=== PATIENT | male | born 1950 | race African-American/Black ===

== ENCOUNTER 2018-12-17 17:05 | Inpatient (IN) | payer OTHER ==
[2018-12-17 19:34] LABS: Hematocrit 35 % (42-52); Mean Corpuscular HGB Conc 34 g/dL (31-36); Mean Corpuscular Hemoglobin 32 pg (27-31); Mean Corpuscular Volume 94 fL (80-94); Mean Platelet Volume 8.8 fL (7.4-10.4); Platelet Count 101 10^3/uL (150-450); Red Blood Count 3.74 10^6 /uL (4.18-5.48); Red Cell Distribution Width 14 % (10-15); White Blood Count 12.2 10^3/uL (3.5-10.8)
[2018-12-17 19:38] LABS: Urine Appearance Turbid; Urine Bacteria Absent (Absent); Urine Bilirubin Negative (Negative); Urine Blood 3+ (Negative); Urine Color Amber; Urine Glucose 1+(50 mg/dL) (Negative); Urine Ketones Negative (Negative); Urine Nitrite Negative (Negative); Urine Protein 2+(100 mg/dL) (Negative); Urine Red Blood Cell 3+(>10/hpf) (Absent); Urine Specific Gravity 1.018 (1.010-1.030); Urine Squamous Epithelial Cell Present (Absent); Urine Urobilinogen Negative (Negative); Urine White Blood Cell 3+(>20/hpf) (Absent)
[2018-12-17 19:50] LABS: Albumin 3.4 g/dL (3.2-5.2); Albumin/Globulin Ratio 1.1 (1-3); BUN/Creatinine Ratio 12.5 (8-20); Calcium 8.9 mg/dL (8.6-10.3); EGFR African American 28.3 (>60); EGFR Non-African American 23.4 (>60); Potassium 4.3 mmol/L (3.5-5.0); Total Protein 6.4 g/dL (6.4-8.9)
[2018-12-17 20:10] LABS: ABS Eosinophils 0.9 10^3/ul (0-0.6); ABS Lymphocytes 0.2 10^3/ul (1.0-4.8); ABS Monocytes 0.5 10^3/ul (0-0.8); ABS Neutrophils 10.6 10^3/ul (1.5-7.7); Eosinophil % 7.6 %; Lymphocyte % 1.8 %; Nucleated Red Blood Cells % 0.1
[2018-12-17] MEDS ORDERED: NS 0.9% 1000 ML** 2,000 ML IV ONE (20:13)
[2018-12-17] MEDS ORDERED: Piperacillin/Tazobac ADVAN(*) 3.375 GM in NS 0.9% 100 ML* 100 ML IVPB ONE (20:14)
[2018-12-17] MEDS ORDERED: Vancomycin(*) 1,000 MG in NS 0.9% 250 ML* 250 ML IVPB ONE (20:14)
--- NOTE | 2018-12-17 20:14 | ED ---
Complex/Multi-Sys Presentation - HPI Summary HPI Summary: 68 year old M presenting to [facility] accompanied by with a chief complaint of back pain since 2 days ago. The patient rates the pain 8/10 in severity. Symptoms aggravated by nothing. Symptoms alleviated by nothing.. Patient reports fever that started 3 days ago. Patient reports dysuria. Patient denies nausea, vomiting. 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 Patient took 500 mg x2 Tylenol 3 hours ago. Patinet has hx renal disease but no hx kidney stones or prostrate issues. states that their son was recently ill. - History Of Current Complaint Chief Complaint: EDFever Time Seen by Provider: 12/17/18 20:05 Hx Obtained From: Patient, Family/Delivery Engineer - Onset/Duration: Lasting Days - 2, Still Present Timing: Constant Severity Currently: Severe - 8/10 Aggravating Factor(s): Nothing Alleviating Factor(s): Nothing Associated Signs And Symptoms: Positive: Dysuria, Fever. Negative: Nausea, Vomiting - Allergies/Home Medications Allergies/Adverse Reactions: Allergies Allergy/AdvReac Type Severity Reaction Status Date / Time spironolactone AdvReac See Comment Verified 12/17/18 17:13 PMH/Surg Hx/FS Hx/Imm Hx Previously Healthy: No Endocrine/Hematology History: Reports: Hx Diabetes - IDDM Cardiovascular History: Reports: Hx Hypertension, Other Cardiovascular Problems/ Disorders - BUNDLE BRANCH BLOCK PER PT- SEES DR FITZGERALD Denies: Hx Pacemaker/ICD Respiratory History: Denies: Hx Asthma GI History: Reports: Hx Gastroesophageal Reflux Disease History: Reports: Hx Renal Disease Denies: Hx Kidney Stones Sensory History: Reports: Hx Contacts or Glasses - GLASSES, Hx Hearing Aid Opthamlomology History: Reports: Hx Contacts or Glasses - GLASSES Psychiatric History: Denies: Hx Panic Disorder - Surgical History Surgery Procedure, Year, and Place: GB,HEART CATH,TESTICULAR CYSTOCELE REMOVED Hx Anesthesia Reactions: No Infectious Disease History: No Infectious Disease History: Denies: Traveled Outside the [place] in Last 30 Days - Family History Known Family History: Positive: Diabetes - mother - Social History Alcohol Use: Occasionally Hx Substance Use: No Substance Use Type: Reports: None Hx Tobacco Use: Yes Smoking Status (MU): Former Smoker Review of Systems Positive: Fever Negative: Vomiting, Nausea Positive: dysuria Positive: Other - back pain All Other Systems Reviewed And Are Negative: Yes Physical Exam - Summary Physical Exam Summary: VITAL SIGNS: Reviewed. GENERAL: Patient is a well-developed and nourished MALE who is lying comfortable in the stretcher. Patient is not in any acute respiratory distress. HEAD AND FACE: No signs of trauma. No ecchymosis, hematomas or skull depressions. No sinus tenderness. EYES: PERRLA, EOMI x 2, No injected conjunctiva, no nystagmus. EARS: Hearing grossly intact. Ear canals and tympanic membranes are within normal limits. MOUTH: Oropharynx within normal limits. NECK: Supple, trachea is midline, no adenopathy, no JVD, no carotid bruit, no c- spine tenderness, neck with full ROM CHEST: Symmetric, no tenderness at palpation LUNGS: Clear to auscultation bilaterally. No wheezing or crackles. CVS: Regular rate and rhythm, S1 and S2 present, no murmurs or gallops appreciated. ABDOMEN: Left CVA tenderness. No signs of distention. No rebound no guarding, and no masses palpated. Bowel sounds are normal. EXTREMITIES: FROM in all major joints, bilateral trace pedal edema, no cyanosis or clubbing. NEURO: Alert and oriented x 3. No acute neurological deficits. Speech is normal and follows commands. SKIN: Dry and warm Triage Information Reviewed: Yes Vital Signs On Initial Exam: Initial Vitals Temp Pulse Resp BP Pulse Ox 101 F 92 18 149/64 97 12/17/18 17:08 12/17/18 17:08 12/17/18 17:08 12/17/18 17:08 12/17/18 17:08 Vital Signs Reviewed: Yes Diagnostics - Vital Signs Vital Signs Temp Pulse Resp BP Pulse Ox 12/17/18 18:39 100 F 74 24 136/60 97 12/17/18 18:31 100.5 F 12/17/18 17:08 101 F 92 18 149/64 97 - Laboratory Lab Results: Lab Results 12/17/18 12/17/18 12/17/18 Range/Units 19:22 19:28 19:28 WBC 12.2 H (3.5-10.8) 10^3/uL RBC 3.74 L (4.18-5.48) 10^6 /uL Hgb 12.0 L (14.0-18.0) g/dL Hct 35 L (42-52) % MCV 94 (80-94) fL MCH 32 H (27-31) pg MCHC 34 (31-36) g/dL RDW 14 (10-15) % Plt Count 101 L (150-450) 10^3/uL MPV 8.8 (7.4-10.4) fL Neut % (Auto) Pending Lymph % (Auto) Pending Mason % (Auto) Pending Eos % (Auto) Pending Baso % (Auto) Pending Absolute Neuts (auto) Pending Absolute Lymphs (auto) Pending Absolute Monos (auto) Pending Absolute Eos (auto) Pending Absolute Basos (auto) Pending Absolute Nucleated RBC Pending Nucleated RBC % Pending Sodium 125 L (135-145) mmol/L Potassium 4.3 (3.5-5.0) mmol/L Chloride 93 L (101-111) mmol/L Carbon Dioxide 24 (22-32) mmol/L Anion Gap 8 (2-11) mmol/L BUN 34 H (6-24) mg/dL Creatinine 2.72 H (0.67-1.17) mg/dL Est GFR ( Amer) 28.3 (>60) Est GFR (Non-Af Amer) 23.4 (>60) BUN/Creatinine Ratio 12.5 (8-20) Glucose 333 H (70-100) mg/dL Lactic Acid (0.5-2.0) mmol/L Calcium 8.9 (8.6-10.3) mg/dL Total Bilirubin 1.00 (0.2-1.0) mg/dL AST 30 (13-39) U/L ALT 20 (7-52) U/L Alkaline Phosphatase 113 H (34-104) U/L Total Protein 6.4 (6.4-8.9) g/dL Albumin 3.4 (3.2-5.2) g/dL Globulin 3.0 (2-4) g/dL Albumin/Globulin Ratio 1.1 (1-3) Urine Color [place] Urine Appearance Turbid Urine pH 5.0 (5-9) Ur Specific [place] 1.018 (1.010-1.030) Urine Protein 2+(100 mg/dl) A (Negative) Urine Ketones Negative (Negative) Urine Blood 3+ A (Negative) Urine Nitrate Negative (Negative) Urine Bilirubin Negative (Negative) Urine Urobilinogen Negative (Negative) Ur Leukocyte Esterase 3+ A (Negative) Urine WBC (Auto) 3+(>20/hpf) A (Absent) Urine RBC (Auto) 3+(>10/hpf) A (Absent) Ur Squamous Epith Cells Present A (Absent) Urine Bacteria Absent (Absent) Urine Sperm Present A (Absent) Urine Glucose 1+(50 mg/dl) A (Negative) 12/17/18 Range/Units 19:28 WBC (3.5-10.8) 10^3/uL RBC (4.18-5.48) 10^6 /uL Hgb (14.0-18.0) g/dL Hct (42-52) % MCV (80-94) fL MCH (27-31) pg MCHC (31-36) g/dL RDW (10-15) % Plt Count (150-450) 10^3/uL MPV (7.4-10.4) fL Neut % (Auto) Lymph % (Auto) Mason % (Auto) Eos % (Auto) Baso % (Auto) Absolute Neuts (auto) Absolute Lymphs (auto) Absolute Monos (auto) Absolute Eos (auto) Absolute Basos (auto) Absolute Nucleated RBC Nucleated RBC % Sodium (135-145) mmol/L Potassium (3.5-5.0) mmol/L Chloride (101-111) mmol/L Carbon Dioxide (22-32) mmol/L Anion Gap (2-11) mmol/L BUN (6-24) mg/dL Creatinine (0.67-1.17) mg/dL Est GFR ( Amer) (>60) Est GFR (Non-Af Amer) (>60) BUN/Creatinine Ratio (8-20) Glucose (70-100) mg/dL Lactic Acid 1.7 (0.5-2.0) mmol/L Calcium (8.6-10.3) mg/dL Total Bilirubin (0.2-1.0) mg/dL AST (13-39) U/L ALT (7-52) U/L Alkaline Phosphatase (34-104) U/L Total Protein (6.4-8.9) g/dL Albumin (3.2-5.2) g/dL Globulin (2-4) g/dL Albumin/Globulin Ratio (1-3) Urine Color Urine Appearance Urine pH (5-9) Ur Specific [place] (1.010-1.030) Urine Protein (Negative) Urine Ketones (Negative) Urine Blood (Negative) Urine Nitrate (Negative) Urine Bilirubin (Negative) Urine Urobilinogen (Negative) Ur Leukocyte Esterase (Negative) Urine WBC (Auto) (Absent) Urine RBC (Auto) (Absent) Ur Squamous Epith Cells (Absent) Urine Bacteria (Absent) Urine Sperm (Absent) Urine Glucose (Negative) Result Diagrams: 12/17/18 19:28 12/17/18 19:28 Lab Statement: Any lab studies that have been ordered have been reviewed, and results considered in the medical decision making process. - CT Abd/Pel CT Interpretation Completed By: Radiologist Summary of CT Findings: 1. There is symmetric bilateral perinephric scarring or fat stranding but no visible calculi or hydronephrosis. 2. There is minimal urine volume in the urinary bladder with associated urinary bladder wall thickening but there is also adjacent fat stranding, cannot exclude diffuse cystitis. ED physician has reviewed this report. Re-Evaluation - Re-Evaluation First Eval Re-Evaluation Time: 23:46 Comment: Patient is agreeable to admission plan Complex Multi-Symp Course/Dx Course Of Treatment: 68 year old M presenting to [facility] accompanied by with a chief complaint of back pain, fever, dysuria since 2 days ago. 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 Patient took 500 mg x2 Tylenol 3 hours ago. Patinet has hx renal disease but no hx kidney stones or prostrate issues. Physical exam findings: left CVA tenderness, bilateral trace pedal edema. CT Abd/Pel reveals, per radiologist, 1. There is symmetric bilateral perinephric scarring or fat stranding but no visible calculi or hydronephrosis. 2. There is minimal urine volume in the urinary bladder with associated urinary bladder wall thickening but there is also adjacent fat stranding, cannot exclude diffuse cystitis. Test results with no significant abnormalities except for WBC 12.2, RBC 3.74, Hgb 12.-, Hct 35, Plt 101, absolute neuts 10.6, absolute lymphs 0.2, and absolute eos 0.9, sodium 125, chloride 93, BUN 34, creatinine 2.72, glucose 333, alkaline phosphatase 113, and c-reactive protein 204.12. Urinanalysis shows protein 2+, blood 3+, leukocyte esterase 3+, WBC 3+, RBC 3+, squamous epithelial cells, sperm, and glucose 1+. In the ED course, the patient was given insulin, IV fluids, vancomycin, piperacillin/tazobactam. Discussed patient care with Dr. Kelly, hospitalist, at 23:43 who agreed to admit patient. The patient will be admitted to the hospitalist. Patient is agreeable to discharge plan. - Diagnoses Provider Diagnoses: Pyelonephritis, UTI (urinary tract infection) - Physician Notifications Discussed Care Of Patient With: Yisel Kelly Time Discussed With Above Provider: 23:43 Instructed by Provider To: Other - Dr. Kelly, hospitalist, agrees to admit patient Discharge - Sign-Out/Discharge Documenting (check all that apply): Patient Departure - Admit Patient Received Moderate/Deep Sedation with Procedure: No - Discharge Plan Condition: Stable Disposition: ADMITTED TO [facility] Referrals: Erika Bolivar MD [Primary Care Provider] - - Attestation Statements Document Initiated by Scribe: Yes Documenting Scribe: Daylin Marcano Provider For Whom Bentonibe is Documenting (Include Credential): Ayaka Atkins MD Scribe Attestation: IDaylin, scribed for Ayaka Atkins MD on 12/17/18 at [id number]. Status of Scribe Document: Ready
[2018-12-17] MEDS ORDERED: Insulin REGULAR(*) 1 UNITS UNIT IV PUSH ONE (20:15)
[2018-12-17 20:55] LABS: Activated Partial Thrombo Time 30.3 seconds (26.0-38.0); INR 1.08 (0.82-1.09)
[2018-12-18] MEDS ORDERED: Acetaminophen TAB* 325 MG PO PRN (02:42)
[2018-12-18] MEDS ORDERED: Dextrose 50% Syringe 50 ML* 25 GM/50 ML SYRINGE IV PUSH PRN (02:42)
[2018-12-18] MEDS ORDERED: Ondansetron INJ* 2 MG/ML VIAL IV PRN (02:43)
[2018-12-18] MEDS ORDERED: Morphine INJ* 2 MG/ML 1 ML SYRINGE (TWO MG - NEW SYRINGE VERSION) IV PRN (02:56)
[2018-12-18] MEDS ORDERED: Morphine 4 MG/ML VIAL (1 ml) 4 MG/ML VIAL IV ONE (03:05)
[2018-12-18] MEDS: NS 0.9% 1000 ML** 1,000 ML IV SCH ×2 (03:23→08:59)
[2018-12-18] MEDS: Enoxaparin(*) 30 MG/0.3 ML SYR SUBCUT SCH (04:06)
[2018-12-18] MEDS: cefTRIAXone(*) 1 GM in NS 0.9% 50 ML* 50 ML IVPB SCH (04:09)
--- NOTE | 2018-12-18 07:31 | HP ---
HISTORY AND PHYSICAL: DATE OF ADMISSION: 12/18/18 CHIEF COMPLAINT: Back pain. PRIMARY CARE PROVIDER: Erika Bolivar MD. SALES AND MARKETING INTERN: Alana Doran, the patient's . CODE STATUS: Full. SOURCE OF INFORMATION: HPI is obtained from the patient and review of chart. He is an excellent historian. HISTORY OF PRESENT ILLNESS: This is a 68-year-old male with a past medical history of insulin-dependent diabetes, CAD, status post distant myocardial infarction without intervention per patient, hypertension, GERD, CKD, stage 2 to 3, chronic hep B status, and baseline left bundle-branch block, who is presenting with 2 to 3 days of back pain. The patient reports that his back pain started about 3 days ago, dull and achy and he was trying to take Tylenol and increase his fluids. He started to have nausea, vomiting, and fever the day of his admission and thus he decided to present. He has no history of kidney stones, no sick contacts, and no other associated symptoms. He had 2 to 3 episodes of vomiting prior to his admission to the hospital and felt feverish , though no measured temperature at home. In the emergency room, his temperature is 101, blood pressure is 149/64, heart rate 92, respiratory rate 18, satting 97% on room air. Labs are done, which showed hyponatremia to 125, creatinine of 2.72, glucose elevated at 333, white blood cell elevated at 12, hemoglobin of 12, and platelets of 101. CT abdomen and pelvis was done that showed bilateral perinephric stranding, concerning for pyelonephritis. A urinalysis was done, which was 2+ protein, 3+ blood, 3+ leuk esterase, squamous cells, and white blood cell count. CRP was elevated at 204 as well. Because of the patient's fever, meeting 2/4 SIRS criteria, hyponatremia, and elevated creatinine, the patient was asked to be admitted to the hospitalist team for further evaluation and treatment. PAST MEDICAL HISTORY: Insulin-dependent diabetes, hypertension, CAD with distant LA with no intervention per patient, GERD, CKD stage 2 to 3 with baseline creatinine of 1.29, chronic hep B status, left bundle-branch block. PAST SURGICAL HISTORY: Status post cholecystectomy, status post testicular cystocele surgery. MEDICATIONS: Prior to admission: 1. Aspirin 81 mg p.o. daily. 2. Edarbi 80 mg p.o. q.h.s. 3. Esomeprazole 40 mg p.o. q.h.s. 4. Furosemide 40 mg p.o. b.i.d. 5. Humalog 5 units subcutaneous a.c., h.s. 6. Lantus 20 units subcutaneous 8 p.m. 7. Multivitamin 1 tab p.o. daily. 8. Potassium 10 mEq p.o. b.i.d. 9. Simvastatin 20 mg p.o. q.h.s. 10. Vitamin B12 one tab p.o. q.a.m. 11. Amlodipine 10 mg p.o. q.h.s. ALLERGIES: To SPIRONOLACTONE. FAMILY HISTORY: His mother has diabetes. His father had heart disease. SOCIAL HISTORY: The patient is a professor at [employer]. He lives with his . He is a lifetime nontobacco user, social alcohol drinker with 2 to 3 drinks per week and a never illicit user. REVIEW OF SYSTEMS: Constitutional: Positive for 1 day of fever, chills, and malaise. HEENT: Negative for headaches, vision changes or sore throat. Cardiovascular: Negative for chest pain, palpitations, orthopnea. Respiratory : Negative for shortness of breath, cough, or pleuritic chest pain. GI: Negative for abdominal pain. Positive for nausea and vomiting. : Negative for dysuria or hematuria. Some hesitancy and difficulty voiding. Musculoskeletal: Positive for low back pain. Negative for weakness. Skin: Negative for new rashes or lesions. Neurologic: Negative for focal weakness or numbness. Psychiatric: Negative for depression. Endocrine: Negative for polyuria, polydipsia. Heme: Negative for easy bruising, bleeding, or lymphadenopathy. PHYSICAL EXAMINATION GENERAL: This is a very well-appearing, [place] man in mild distress, sitting up in bed, holding his back. VITAL SIGNS: At time of physical exam, temperature is 99.6, pulse rate 70, respiratory rate 18, blood pressure is 152/64. HEENT: Pupils are equal and reactive. Extraocular muscles are intact. Sclerae are anicteric. He has dry mucous membranes. NECK: Supple without cervical lymphadenopathy or supraclavicular lymphadenopathy. RESPIRATORY: Lungs are clear to auscultation bilaterally. CARDIAC: He has regular rate and rhythm with no murmurs, rubs, or gallops. ABDOMEN: Distended, but soft, nontender with normoactive bowel sounds. He does have costovertebral angle tenderness on even gentle palpation bilaterally. MUSCULOSKELETAL: He moves all 4 limbs without pain. EXTREMITIES: He has 1+ nonpitting edema to bilateral shins and 2+ pulses in bilateral lower extremities symmetrically. NEUROLOGIC: His cranial nerves II through XII are intact. He has no focal deficits. He is A and O x4. LABORATORY DATA AND DIAGNOSTIC STUDIES: White blood cell count is 12.2, hemoglobin 12, hematocrit 35, platelets 101. Sodium 125, chloride 93, BUN 34, creatinine 2.72, glucose 333, lactic acid 1.7, alkaline phosphatase 113, elevated CRP at 204. UA with 2+ protein, 3+ blood, 3+ leuk esterase, 3+ white blood cell count. Imaging: CT abdomen, pelvis that showed bilateral perinephric stranding on both kidneys. Minimal urine volume in the urinary bladder with associated urinary bladder thickening with adjacent fat stranding and cannot exclude diffuse cystitis. Imaging and labs were reviewed by myself. ASSESSMENT AND PLAN: This is a 68-year-old man with a past medical history of insulin-dependent diabetes, hypertension, gastroesophageal reflux disease, chronic kidney disease stage 2 to 3, chronic hepatitis B status, who is presenting with 3 days of back pain and 1 day of nausea, vomiting, and fever, found to have pyelonephritis bilaterally and diffuse cystitis meeting sepsis criteria with 2/4 systemic inflammatory response syndrome criteria and a suspected source likely from urinary. 1. Sepsis. The patient has 2/4 systemic inflammatory response syndrome criteria with likely urinary source, his lactate is flat. He has no evidence of end organ damage or shock. He was bolused in the emergency room with 2 L normal saline. I will continue him on maintenance IV at 125 for an additional 2 L. The patient has been pancultured with blood cultures, urine culture, and has received vancomycin and Zosyn in the emergency room. We will continue ceftriaxone for gram-negative coverage and follow culture data closely, low suspicion for Methicillin-resistant Staphylococcus aureus thus stable to discontinue vancomycin. 2. Pyelonephritis. As above we will continue with fluids, ceftriaxone, and urine culture. If persistent fevers, consider broadening or repeating ultrasound to determine any local complications of pyelonephritis. Furthermore, unclear HOW patient got bilateral pyelonephritis ? retention? consider bladder scan and urology 3. Acute kidney injury on chronic kidney disease most likely hypovolemic prerenal injury. We will continue to follow status post fluid resuscitation. The patient has no evidence of hydronephrosis, and no evidence of urinary retention on CT scan. 4. Insulin-dependent diabetes. We will continue Lantus 20 units q.h.s. and sliding Lispro with meals. Point of care glucose is monitored. 5. Gastroesophageal reflux disease. We will continue the patient's PPI. 6. Hypertension. We will continue amlodipine, but hold on Lasix and potassium supplementation for now. 7. Coronary artery disease. The patient is on aspirin, statin, and not on beta - osiris; will be continued on home aspirin and statin. 8. Hyponatremia, this is likely hypovolemic hyponatremia and we will monitor after fluid resuscitation. 9. DVT prophylaxis. We will place the patient on Lovenox, renally dosed. 10. Diet. Place the patient on carb consistent diet. 11. Code status is full. 12. Disposition. This patient is stable for admission the [address] [place] [address] for pyelonephritis, sepsis without shock with presumed urinary source. TIME SPENT: Forty five minutes was spent in the planning of this admission with over half of that spent directly at the bedside with the patient providing direct patient care. Plan of care was discussed with patient and has no further questions. [id number]/[facility] #: [id number] [place]
[2018-12-18] MEDS: Insulin LISPRO* 1 UNITS UNIT SUBCUT SCH ×4 (08:53→20:47)
[2018-12-18] MEDS: Pantoprazole TAB * 40 MG TAB PO SCH (08:53)
[2018-12-18] MEDS: Aspirin 81 mg CHEW TAB* 81 MG TAB.CHEW PO SCH (08:53)
[2018-12-18 08:56] LABS: BUN/Creatinine Ratio 13.2 (8-20); Calcium 7.5 mg/dL (8.6-10.3); EGFR African American 25.7 (>60); EGFR Non-African American 21.2 (>60); Potassium 4.9 mmol/L (3.5-5.0)
--- NOTE | 2018-12-18 14:53 | PN ---
Subjective Date of Service: 12/18/18 Interval History: VS: afebrile Labs: leukocytosis, anemia, thrombocytopenia- all likely reactive; hyponatremia - improving; elevated Cr, elevated CRP Pt states he is feeling much better today, stating urinary flow is improved and he has decreased pain with urination, although he continues to experience burning. He states back pain is intermittently, but currently he has none. He notes urine color change, and believes he is experiencing hematuria, but is unsure. He follows with Dr. Srinivasan as outpatient, and states that he has had UTI in past, but is not sure about h/o pyelo. Objective Active Medications: Acetaminophen (Tylenol Tab*) 650 mg PO Q6H PRN Amlodipine Besylate (Norvasc Tab*) 10 mg PO 1700 GAUDENCIO Aspirin (Aspirin 81 Mg Chew Tab*) 81 mg PO DAILY GAUDENCIO Atorvastatin Calcium (Lipitor*) 10 mg PO 1700 GAUDENCIO Dextrose (D50w Syringe 50 Ml*) 12.5 gm IV PUSH .FOR FS < 60 - SS PRN Enoxaparin Sodium (Lovenox(*)) 30 mg SUBCUT Q24H GAUDENCIO Sodium Chloride (Ns 0.9% 1000 Ml) 1,000 mls @ 125 mls/hr IV Q8H GAUDENCIO Ceftriaxone Sodium 1 gm/ (Sodium Chloride) 50 mls @ 200 mls/hr IVPB Q24H GAUDENCIO Insulin Glargine (Lantus(*)) 20 units SUBCUT Q24H GAUDENCIO Insulin Human Lispro (Humalog*) 0 units SUBCUT ACHS GAUDENCIO; Protocol Morphine Sulfate (Morphine Inj (Syringe))*) 4 mg IV Q6H PRN Ondansetron HCl (Zofran Inj*) 4 mg IV Q6H PRN Pantoprazole Sodium (Protonix Tab*) 40 mg PO DAILY GAUDENCIO Vital Signs: Temp Pulse Resp BP Pulse Ox 98.0 F 76 28 104/58 99 12/18/18 12:14 12/18/18 12:14 12/18/18 12:14 12/18/18 12:14 12/18/18 12:14 Oxygen Devices in Use Now: None Appearance: Pt is laying in bed with HOB elevated. He appears comfortable and in no acute distress. He is pleasant, cooperative. Eyes: No Scleral Icterus Ears/Nose/Mouth/Throat: NL Teeth, Lips, Gums, Clear Oropharnyx, Mucous Membranes Moist Neck: NL Appearance and Movements; NL JVP, Trachea Midline Respiratory: Symmetrical Chest Expansion and Respiratory Effort, Clear to Auscultation Cardiovascular: NL Sounds; No Murmurs; No JVD, RRR, No Edema Abdominal: No Hepatosplenomegaly - BS WNL; abd soft and distended without tenderness. + CVA tenderness on L. Extremities: No Edema, No Clubbing, Cyanosis Neurological: Alert and Oriented x 3 Result Diagrams: 12/17/18 19:28 12/18/18 08:21 Additional Lab and Data: Lab Results 12/17/18 12/17/18 12/17/18 Range/Units 19:22 19:28 19:28 WBC 12.2 H (3.5-10.8) 10^3/uL RBC 3.74 L (4.18-5.48) 10^6 /uL Hgb 12.0 L (14.0-18.0) g/dL Hct 35 L (42-52) % MCV 94 (80-94) fL MCH 32 H (27-31) pg MCHC 34 (31-36) g/dL RDW 14 (10-15) % Plt Count 101 L (150-450) 10^3/uL MPV 8.8 (7.4-10.4) fL Neut % (Auto) Pending Lymph % (Auto) Pending [place] % (Auto) Pending Eos % (Auto) Pending Baso % (Auto) Pending Absolute Neuts (auto) Pending Absolute Lymphs (auto) Pending Absolute Monos (auto) Pending Absolute Eos (auto) Pending Absolute Basos (auto) Pending Absolute Nucleated RBC Pending Nucleated RBC % Pending Sodium 125 L (135-145) mmol/L Potassium 4.3 (3.5-5.0) mmol/L Chloride 93 L (101-111) mmol/L Carbon Dioxide 24 (22-32) mmol/L Anion Gap 8 (2-11) mmol/L BUN 34 H (6-24) mg/dL Creatinine 2.72 H (0.67-1.17) mg/dL Est GFR ( Amer) 28.3 (>60) Est GFR (Non-Af Amer) 23.4 (>60) BUN/Creatinine Ratio 12.5 (8-20) Glucose 333 H (70-100) mg/dL Lactic Acid (0.5-2.0) mmol/L Calcium 8.9 (8.6-10.3) mg/dL Total Bilirubin 1.00 (0.2-1.0) mg/dL AST 30 (13-39) U/L ALT 20 (7-52) U/L Alkaline Phosphatase 113 H (34-104) U/L Total Protein 6.4 (6.4-8.9) g/dL Albumin 3.4 (3.2-5.2) g/dL Globulin 3.0 (2-4) g/dL Albumin/Globulin Ratio 1.1 (1-3) Urine Color [place] Urine Appearance Turbid Urine pH 5.0 (5-9) Ur Specific [place] 1.018 (1.010-1.030) Urine Protein 2+(100 mg/dl) A (Negative) Urine Ketones Negative (Negative) Urine Blood 3+ A (Negative) Urine Nitrate Negative (Negative) Urine Bilirubin Negative (Negative) Urine Urobilinogen Negative (Negative) Ur Leukocyte Esterase 3+ A (Negative) Urine WBC (Auto) 3+(>20/hpf) A (Absent) Urine RBC (Auto) 3+(>10/hpf) A (Absent) Ur Squamous Epith Cells Present A (Absent) Urine Bacteria Absent (Absent) Urine Sperm Present A (Absent) Urine Glucose 1+(50 mg/dl) A (Negative) 12/17/18 Range/Units 19:28 WBC (3.5-10.8) 10^3/uL RBC (4.18-5.48) 10^6 /uL Hgb (14.0-18.0) g/dL Hct (42-52) % MCV (80-94) fL MCH (27-31) pg MCHC (31-36) g/dL RDW (10-15) % Plt Count (150-450) 10^3/uL MPV (7.4-10.4) fL Neut % (Auto) Lymph % (Auto) [place] % (Auto) Eos % (Auto) Baso % (Auto) Absolute Neuts (auto) Absolute Lymphs (auto) Absolute Monos (auto) Absolute Eos (auto) Absolute Basos (auto) Absolute Nucleated RBC Nucleated RBC % Sodium (135-145) mmol/L Potassium (3.5-5.0) mmol/L Chloride (101-111) mmol/L Carbon Dioxide (22-32) mmol/L Anion Gap (2-11) mmol/L BUN (6-24) mg/dL Creatinine (0.67-1.17) mg/dL Est GFR ( Amer) (>60) Est GFR (Non-Af Amer) (>60) BUN/Creatinine Ratio (8-20) Glucose (70-100) mg/dL Lactic Acid 1.7 (0.5-2.0) mmol/L Calcium (8.6-10.3) mg/dL Total Bilirubin (0.2-1.0) mg/dL AST (13-39) U/L ALT (7-52) U/L Alkaline Phosphatase (34-104) U/L Total Protein (6.4-8.9) g/dL Albumin (3.2-5.2) g/dL Globulin (2-4) g/dL Albumin/Globulin Ratio (1-3) Urine Color Urine Appearance Urine pH (5-9) Ur Specific [place] (1.010-1.030) Urine Protein (Negative) Urine Ketones (Negative) Urine Blood (Negative) Urine Nitrate (Negative) Urine Bilirubin (Negative) Urine Urobilinogen (Negative) Ur Leukocyte Esterase (Negative) Urine WBC (Auto) (Absent) Urine RBC (Auto) (Absent) Ur Squamous Epith Cells (Absent) Urine Bacteria (Absent) Urine Sperm (Absent) Urine Glucose (Negative) Assess/Plan/Problems-Billing Assessment: 68 yom PMHx DM insulin-dependent, HTN, CAD, CKD, GERD, chronic HBV, LBBB presents with sepsis likely due to pyelonephritis. - Patient Problems (1) Pyelonephritis, acute Comment: -B/l pyelo without hydro; pain improved, afebrile with leukocytosis, elevated CRP -BC GP cocci resembling staph x1- ? skin contaminant; will start vanco and await further identification. Will consider ID consult. -Continue ceftriaxone -Bladder scan ordered for possible urinary retention- WNL to date (2) Hyponatremia Comment: -Slight improvement with hydration -Continue IVF and monitoring (3) Sepsis Comment: -Sepsis likely secondary to pyelo -BC pending -Resolved (4) Diabetes mellitus Comment: -Continue lantus, humalog (5) Hypertension Comment: -Controlled -Continue amlodipine (6) CKD (chronic kidney disease) Comment: -Cr elevated above baseline, trending slightly up; ? SHAINA d/t prerenal hypovolemia -Will continue IVF -Bladder scan to check for urinary retention -Continue to monitor (7) CAD (coronary artery disease) Comment: -ASA, lipitor (8) GERD (gastroesophageal reflux disease) Comment: -Continue protonix (9) DVT prophylaxis Comment: -Continue lovenox renal dose (10) Full code status Status and Disposition: Inpatient. Discharge when stable.
[2018-12-18] MEDS: amLODIPine TAB* 5 MG PO SCH (16:39)
[2018-12-18] MEDS: Atorvastatin* 10 MG TAB PO SCH (16:40)
[2018-12-18] MEDS ORDERED: Senna TAB PO PRN (17:39)
[2018-12-18] MEDS ORDERED: Magnesium Hydroxide LIQ* 30 ML UDC PO PRN (17:39)
[2018-12-18] MEDS ORDERED: Polyethylene Glycol 3350* 17 GM PACKET PO PRN (17:39)
[2018-12-18] MEDS ORDERED: Vancomycin(*) 1,250 MG in NS 0.9% 250 ML* 250 ML IVPB ONE (18:00)
[2018-12-18] MEDS: Docusate CAP* 100 MG PO SCH (20:44)
[2018-12-18] MEDS: Magnesium Hydroxide LIQ* 30 ML UDC PO SCH (20:44)
[2018-12-18] MEDS: Insulin GLARGINE(*) 1 UNITS UNIT SUBCUT SCH (20:46)
[2018-12-19] MEDS: cefTRIAXone(*) 1 GM in NS 0.9% 50 ML* 50 ML IVPB SCH (04:18)
[2018-12-19] MEDS: Enoxaparin(*) 30 MG/0.3 ML SYR SUBCUT SCH (04:21)
[2018-12-19 07:07] LABS: Hematocrit 33 % (42-52); Hemoglobin 11.3 g/dL (14.0-18.0); Mean Corpuscular HGB Conc 34 g/dL (31-36); Mean Corpuscular Hemoglobin 32 pg (27-31); Mean Corpuscular Volume 94 fL (80-94); Red Blood Count 3.52 10^6 /uL (4.18-5.48); Red Cell Distribution Width 14 % (10-15); White Blood Count 13.7 10^3/uL (3.5-10.8)
[2018-12-19 07:17] LABS: Calcium 8.2 mg/dL (8.6-10.3); EGFR Non-African American 23.1 (>60); Potassium 4.3 mmol/L (3.5-5.0)
[2018-12-19] MEDS: Insulin LISPRO* 1 UNITS UNIT SUBCUT SCH ×4 (08:08→20:59)
[2018-12-19] MEDS: Aspirin 81 mg CHEW TAB* 81 MG TAB.CHEW PO SCH (08:09)
[2018-12-19] MEDS: Pantoprazole TAB * 40 MG TAB PO SCH (08:09)
[2018-12-19] MEDS: Magnesium Hydroxide LIQ* 30 ML UDC PO SCH ×4 (08:09→20:52)
[2018-12-19] MEDS: Docusate CAP* 100 MG PO SCH ×2 (08:09→21:01)
[2018-12-19 08:46] LABS: ABS Eosinophils 0.3 10^3/ul (0-0.6); ABS Lymphocytes 0.2 10^3/ul (1.0-4.8); ABS Monocytes 0.5 10^3/ul (0-0.8); ABS Neutrophils 12.7 10^3/ul (1.5-7.7); Eosinophil % 2.5 %; Lymphocyte % 1.4 %; Mean Platelet Volume 10.1 fL (7.4-10.4); Nucleated Red Blood Cells % 0.1; Platelet Count 82 10^3/uL (150-450)
--- NOTE | 2018-12-19 10:03 | PN ---
Subjective Date of Service: 12/19/18 Interval History: VS: WNL Labs: increased leukocytosis, thrombocytopenia- ? reactive; decreased H/H; hyponatremia and Cr improving Pt states that he is feeling better. States he continues to have small amount of pain on L side, but that it is improved from admission. He is urinating well without hematuria/color changes or burning on urination. He has b/l LE edema, which he states occurs when LE are on ground. Objective Active Medications: Acetaminophen (Tylenol Tab*) 650 mg PO Q6H PRN Amlodipine Besylate (Norvasc Tab*) 10 mg PO 1700 GAUDENCIO Aspirin (Aspirin 81 Mg Chew Tab*) 81 mg PO DAILY GAUDENCIO Atorvastatin Calcium (Lipitor*) 10 mg PO 1700 GAUDENCIO Dextrose (D50w Syringe 50 Ml*) 12.5 gm IV PUSH .FOR FS < 60 - SS PRN Docusate Sodium (Colace Cap*) 100 mg PO BID GAUDENCIO Enoxaparin Sodium (Lovenox(*)) 30 mg SUBCUT Q24H GAUDENCIO Ceftriaxone Sodium 1 gm/ (Sodium Chloride) 50 mls @ 200 mls/hr IVPB Q24H GAUDENCIO Insulin Glargine (Lantus(*)) 20 units SUBCUT Q24H GAUDENCIO Insulin Human Lispro (Humalog*) 0 units SUBCUT ACHS GAUDENCIO; Protocol Magnesium Hydroxide (Milk Of Magnesia Liq*) 30 ml PO BID GAUDENCIO Magnesium Hydroxide (Milk Of Magnesia Liq*) 30 ml PO BID PRN Morphine Sulfate (Morphine Inj (Syringe))*) 4 mg IV Q6H PRN Ondansetron HCl (Zofran Inj*) 4 mg IV Q6H PRN Pantoprazole Sodium (Protonix Tab*) 40 mg PO DAILY GAUDENCIO Polyethylene Glycol/Electrolytes (Miralax*) 17 gm PO DAILY PRN Senna (Senokot Tab*) 1 tab PO BEDTIME PRN Vital Signs: Temp Pulse Resp BP Pulse Ox 99.1 F 90 18 139/56 99 12/19/18 06:01 12/19/18 06:01 12/19/18 08:24 12/19/18 06:01 12/19/18 06:01 Oxygen Devices in Use Now: None Appearance: Pt is sitting at edge of bed with LE on ground. He is eating breakfast. He appears well and in no acute distress. Eyes: No Scleral Icterus, PERRLA Ears/Nose/Mouth/Throat: NL Teeth, Lips, Gums, Clear Oropharnyx, Mucous Membranes Moist Neck: NL Appearance and Movements; NL JVP, Trachea Midline Respiratory: Symmetrical Chest Expansion and Respiratory Effort, Clear to Auscultation Cardiovascular: NL Sounds; No Murmurs; No JVD, RRR Abdominal: NL Sounds; No Tenderness; No Distention, No Hepatosplenomegaly, - - + L CVA tenderness Extremities: No Clubbing, Cyanosis, - - 1+ dependent pitting edema to b/l LE Neurological: Alert and Oriented x 3 Result Diagrams: 12/19/18 06:37 12/19/18 06:37 Additional Lab and Data: Lab Results 12/17/18 12/17/18 12/17/18 Range/Units 19:22 19:28 19:28 WBC 12.2 H (3.5-10.8) 10^3/uL RBC 3.74 L (4.18-5.48) 10^6 /uL Hgb 12.0 L (14.0-18.0) g/dL Hct 35 L (42-52) % MCV 94 (80-94) fL MCH 32 H (27-31) pg MCHC 34 (31-36) g/dL RDW 14 (10-15) % Plt Count 101 L (150-450) 10^3/uL MPV 8.8 (7.4-10.4) fL Neut % (Auto) Pending Lymph % (Auto) Pending [place] % (Auto) Pending Eos % (Auto) Pending Baso % (Auto) Pending Absolute Neuts (auto) Pending Absolute Lymphs (auto) Pending Absolute Monos (auto) Pending Absolute Eos (auto) Pending Absolute Basos (auto) Pending Absolute Nucleated RBC Pending Nucleated RBC % Pending Sodium 125 L (135-145) mmol/L Potassium 4.3 (3.5-5.0) mmol/L Chloride 93 L (101-111) mmol/L Carbon Dioxide 24 (22-32) mmol/L Anion Gap 8 (2-11) mmol/L BUN 34 H (6-24) mg/dL Creatinine 2.72 H (0.67-1.17) mg/dL Est GFR ( Amer) 28.3 (>60) Est GFR (Non-Af Amer) 23.4 (>60) BUN/Creatinine Ratio 12.5 (8-20) Glucose 333 H (70-100) mg/dL Lactic Acid (0.5-2.0) mmol/L Calcium 8.9 (8.6-10.3) mg/dL Total Bilirubin 1.00 (0.2-1.0) mg/dL AST 30 (13-39) U/L ALT 20 (7-52) U/L Alkaline Phosphatase 113 H (34-104) U/L Total Protein 6.4 (6.4-8.9) g/dL Albumin 3.4 (3.2-5.2) g/dL Globulin 3.0 (2-4) g/dL Albumin/Globulin Ratio 1.1 (1-3) Urine Color [place] Urine Appearance Turbid Urine pH 5.0 (5-9) Ur Specific [place] 1.018 (1.010-1.030) Urine Protein 2+(100 mg/dl) A (Negative) Urine Ketones Negative (Negative) Urine Blood 3+ A (Negative) Urine Nitrate Negative (Negative) Urine Bilirubin Negative (Negative) Urine Urobilinogen Negative (Negative) Ur Leukocyte Esterase 3+ A (Negative) Urine WBC (Auto) 3+(>20/hpf) A (Absent) Urine RBC (Auto) 3+(>10/hpf) A (Absent) Ur Squamous Epith Cells Present A (Absent) Urine Bacteria Absent (Absent) Urine Sperm Present A (Absent) Urine Glucose 1+(50 mg/dl) A (Negative) 12/17/18 Range/Units 19:28 WBC (3.5-10.8) 10^3/uL RBC (4.18-5.48) 10^6 /uL Hgb (14.0-18.0) g/dL Hct (42-52) % MCV (80-94) fL MCH (27-31) pg MCHC (31-36) g/dL RDW (10-15) % Plt Count (150-450) 10^3/uL MPV (7.4-10.4) fL Neut % (Auto) Lymph % (Auto) [place] % (Auto) Eos % (Auto) Baso % (Auto) Absolute Neuts (auto) Absolute Lymphs (auto) Absolute Monos (auto) Absolute Eos (auto) Absolute Basos (auto) Absolute Nucleated RBC Nucleated RBC % Sodium (135-145) mmol/L Potassium (3.5-5.0) mmol/L Chloride (101-111) mmol/L Carbon Dioxide (22-32) mmol/L Anion Gap (2-11) mmol/L BUN (6-24) mg/dL Creatinine (0.67-1.17) mg/dL Est GFR ( Amer) (>60) Est GFR (Non-Af Amer) (>60) BUN/Creatinine Ratio (8-20) Glucose (70-100) mg/dL Lactic Acid 1.7 (0.5-2.0) mmol/L Calcium (8.6-10.3) mg/dL Total Bilirubin (0.2-1.0) mg/dL AST (13-39) U/L ALT (7-52) U/L Alkaline Phosphatase (34-104) U/L Total Protein (6.4-8.9) g/dL Albumin (3.2-5.2) g/dL Globulin (2-4) g/dL Albumin/Globulin Ratio (1-3) Urine Color Urine Appearance Urine pH (5-9) Ur Specific [place] (1.010-1.030) Urine Protein (Negative) Urine Ketones (Negative) Urine Blood (Negative) Urine Nitrate (Negative) Urine Bilirubin (Negative) Urine Urobilinogen (Negative) Ur Leukocyte Esterase (Negative) Urine WBC (Auto) (Absent) Urine RBC (Auto) (Absent) Ur Squamous Epith Cells (Absent) Urine Bacteria (Absent) Urine Sperm (Absent) Urine Glucose (Negative) Microbiology and Other Data: Microbiology 12/17/18 20:35 Aerobic Blood Culture - Preliminary Blood Venous No Growth Day 1 Anaerobic Blood Culture - Final Staphylococcus [place] Blood MRSA/MSSA (PCR) - Final Mrsa Negative S.aureus Negative 12/17/18 20:37 Aerobic Blood Culture - Preliminary Blood Venous No Growth Day 1 Anaerobic Blood Culture - Preliminary No Growth Day 1 Assess/Plan/Problems-Billing Assessment: 68 yom PMHx DM insulin-dependent, HTN, CAD, CKD, GERD, chronic HBV, LBBB presents with sepsis likely due to pyelonephritis. - Patient Problems (1) Pyelonephritis, acute Comment: -B/l pyelo without hydro; pain improved, afebrile with leukocytosis, elevated CRP -BC GP cocci resembling staph x1- probable skin contaminant- d/c vanco (1 dose given) -BC with GN baccilli x1- awaiting further identification; continue ceftriaxone -Urine culture pending -Continue ceftriaxone -Bladder scan ordered for possible urinary retention- no retention to date (2) Hyponatremia Comment: -Slight improvement with hydration -Continue IVF and monitoring (3) Sepsis Comment: -Sepsis likely secondary to pyelo -BC x4 show 1 bottle with Staph [place], likely skin contaminant -Resolved (4) Diabetes mellitus Comment: -Controlled -Continue lantus, humalog (5) Hypertension Comment: -Controlled -Continue amlodipine (6) CKD (chronic kidney disease) Comment: -Cr elevated above baseline, trending slightly down; ? SHAINA d/t prerenal hypovolemia -Bladder scan to check for urinary retention shows no retention to date -Will continue IVF -Continue to monitor (7) CAD (coronary artery disease) Comment: -ASA, lipitor (8) GERD (gastroesophageal reflux disease) Comment: -Continue protonix (9) DVT prophylaxis Comment: -Continue lovenox renal dose (10) Full code status Status and Disposition: Inpatient. Discharge when stable.
[2018-12-19] MEDS: Atorvastatin* 10 MG TAB PO SCH (18:07)
[2018-12-19] MEDS: amLODIPine TAB* 5 MG PO SCH (18:07)
[2018-12-19] MEDS: NS 0.9% 1000 ML** 1,000 ML IV SCH ×2 (18:51→21:56)
[2018-12-19] MEDS ORDERED: NS 0.9% 1000 ML** 1,000 ML IV ONE (20:47)
[2018-12-19] MEDS: Insulin GLARGINE(*) 1 UNITS UNIT SUBCUT SCH (20:59)
[2018-12-20] MEDS: cefTRIAXone(*) 1 GM in NS 0.9% 50 ML* 50 ML IVPB SCH (04:22)
[2018-12-20] MEDS: Enoxaparin(*) 30 MG/0.3 ML SYR SUBCUT SCH (04:24)
[2018-12-20] MEDS ORDERED: Albuterol 2.5 MG/3 ML NEB.SOL* (0.083%) INH PRN (04:44)
--- NOTE | 2018-12-20 05:04 | PN ---
Progress Note - Progress Note Date of Service: 12/20/18 Note: Called to see the patient for increased RR, wheezing and pursed lip breathing. When I arrive he is lying back in bed appearing relatively comfortable. EKG getting set up. When I listen to the patient his rhythm is irregular, EKG confirms afib. Pt has no history of afib. There is also diffuse wheezing on exam. Give albuterol neb now. HR is controlled. Check CXR, echo.
[2018-12-20] MEDS: Insulin LISPRO* 1 UNITS UNIT SUBCUT SCH ×2 (07:35→12:22)
[2018-12-20] MEDS: Magnesium Hydroxide LIQ* 30 ML UDC PO SCH (07:57)
[2018-12-20] MEDS: Docusate CAP* 100 MG PO SCH (07:57)
[2018-12-20] MEDS: Aspirin 81 mg CHEW TAB* 81 MG TAB.CHEW PO SCH (07:59)
[2018-12-20] MEDS: Pantoprazole TAB * 40 MG TAB PO SCH (08:00)
[2018-12-20] MEDS: NS 0.9% 1000 ML** 1,000 ML IV SCH (08:01)
[2018-12-20 08:16] LABS: Hematocrit 33 % (42-52); Hemoglobin 11.4 g/dL (14.0-18.0); Mean Corpuscular HGB Conc 35 g/dL (31-36); Mean Corpuscular Hemoglobin 32 pg (27-31); Mean Corpuscular Volume 93 fL (80-94); Mean Platelet Volume 8.7 fL (7.4-10.4); Platelet Count 88 10^3/uL (150-450); Red Blood Count 3.55 10^6 /uL (4.18-5.48); Red Cell Distribution Width 14 % (10-15); White Blood Count 8.9 10^3/uL (3.5-10.8)
[2018-12-20 08:30] LABS: BUN/Creatinine Ratio 17.6 (8-20); Calcium 8.2 mg/dL (8.6-10.3); EGFR African American 33.9 (>60); Potassium 4.2 mmol/L (3.5-5.0)
[2018-12-20 10:08] LABS: ABS Eosinophils 0.1 10^3/ul (0-0.6); ABS Lymphocytes 0.2 10^3/ul (1.0-4.8); ABS Monocytes 0.6 10^3/ul (0-0.8); ABS Neutrophils 7.9 10^3/ul (1.5-7.7); Lymphocyte % 2.1 %; Nucleated Red Blood Cells % 0.2
[2018-12-20] MEDS ORDERED: Furosemide IV* 10 MG/ML VIAL (40 MG) IV ONE (11:22)
--- NOTE | 2018-12-20 12:11 | ECHO ---
*[facility]* [place] [address] Fax #: [phone] Transthoracic Echocardiogram Patient: Espinoza Height: 66 in / Joaquin 167.6 cm : 1950 Weight: 172.6 lb / Study Date: 12/20/2018 78.5 kg Age: 68 BP: 138 / 56 Gender: M BMI/BSA: 27.9 kg/m^2 HR: 94 bpm / 1.88 m^2 *Hand Washer: * Anu Munoz RDCS RN *Referring Physician: Marya MartiniReading Physician: * Jonathan Hendricks MD Indications: Abnormal EKG. Atrial Fibrillation. History: Coronary artery disease. PMH: Myocardial infarction. CKD. Hepatitis B. LBBB. Risk factors: Hypertension. Diabetes mellitus. Conclusions Summary: 1. Left ventricle: The cavity size is normal. Wall thickness is mildly increased. Systolic function is moderately reduced. The estimated ejection fraction is 30-35%. Mild global left ventricle hypokinesis with abnormal septal motion consistent with LBBB 2. Right ventricle: The cavity size is normal. Systolic function is normal. 3. Ventricular septum: The interventricular septum appears dyssynchronous related to the LBBB. 4. Left atrium: The atrium is mildly dilated. 5. Mitral valve: There is mild regurgitation. 6. Pulmonary arteries: Systolic pressure can not be accurately estimated. Recommendations: Compared to prior study from 08/2018, patients LVEF was previousy 35-40% and was in sinus rhythm. Patient is currently in atrial fibrillation. Study data: Transthoracic echocardiogram. Procedure: Transthoracic echocardiography was performed. Image quality was fair. The study was technically limited due to poor acoustic windows. The patient refused the use of Definity for image enhancement. Complete 2D, spectral Doppler, and color flow Doppler. Patient status: Inpatient. Patient room number: 417-01. Rhythm: Atrial fibrillation. Findings Left ventricle: The cavity size is normal. Wall thickness is mildly increased. Systolic function is moderately reduced. The estimated ejection fraction is 30-35%. Mild global left ventricle hypokinesis with abnormal septal motion consistent with LBBB Left ventricular diastolic function parameters are indeterminate. Right ventricle: The cavity size is normal. Systolic function is normal. Ventricular septum: The interventricular septum appears dyssynchronous related to the LBBB. Left atrium: The atrium is mildly dilated. Right atrium: The atrium is normal in size. Mitral valve: The leaflets are mildly thickened. There is no evidence of stenosis. There is mild regurgitation. Aortic valve: Not well visualized. The valve is trileaflet. The leaflets are mildly thickened. There is no evidence of stenosis. There is no regurgitation. Tricuspid valve: The valve is structurally normal. There is no evidence of stenosis. There is trace to mild regurgitation. Pulmonic valve: Not well visualized. There is no evidence of stenosis. There is evidence of regurgitation. Aorta: Aortic root: The aortic root is not dilated. Ascending aorta: The ascending aorta is not dilated. Aortic arch: The aortic arch is not visualized. Pericardium: There is no pericardial effusion. Pulmonary arteries: Not well visualized. Systolic pressure can not be accurately estimated. Systemic veins: Inferior vena cava: The vessel is normal in size. The respirophasic diameter changes are blunted (< 50%). Measurements Left ventricle Value Ref Right atrium Value Ref ANAT, LAX 4.4 cm 4.2 - ML dim, ES, A4C 3.9 cm 2.6 - 4.4 5.8 SI dim, ES, A4C 4.7 cm 3.4 - 5.3 ESD, LAX 4.0 cm 2.5 - 4.0 Aortic valve Value Ref FS, LAX (L) 11 % 25 - 43 Jake diam, ED 2.0 cm --------- PW, ED, LAX (H) 1.2 cm 0.6 - Peak v, S 1.5 m/sec --------- 1.0 VTI, S 30.7 cm --------- IVS/PW, ED 1 -------- Mean grad, S 6.0 mm Hg --------- E', lat jake, TDI 10.1 cm/sec >=10.0 Peak grad, S 9.0 mm Hg -- ------- E/e', lat jake, TDI 14 -------- LVOT/AV, VTI ratio 0.79 ----- ---- E', med jake, TDI 7.9 cm/sec >=7.0 E/e', med jake, TDI 18 -------- Mitral valve Value Ref E', avg, TDI 9.0 cm/sec -------- Peak E 1.39 m/sec ----- ---- E/e', avg, TDI (H) 15 <=14 Decel time 175 ms -- ------- Peak grad, D 7.7 mm Hg --------- LVOT Value Ref Peak yady, S 1.4 m/sec -------- Pulmonic valve Value Ref VTI, S 24.1 cm -------- Peak v, S 1.21 m/sec --------- Peak grad, S 8 mm Hg -------- Peak grad, S 6.0 mm Hg --------- Mean grad, S 5 mm Hg -------- Aortic root Value Ref Ventricular septum Value Ref Root diam 2.8 cm <4.1 IVS, ED (H) 1.2 cm 0.6 - 1.0 Ascending aorta Value Ref AAo AP diam, S 2.8 cm --------- Right ventricle Value Ref ANAT minor ax, A4C (H) 3.8 cm 1.9 - Inferior vena cava Value Ref mid 3.5 Diam 1.9 cm --------- Left atrium Value Ref ML dim, A4C 4.2 cm -------- SI dim, A4C 5.7 cm -------- Vol/bsa, ES, 1-p 34 ml/m^2 12 - 37 A4C Vol/bsa, ES, A/L (H) 36 ml/m^2 16 - 34 Legend: (L) and (H) ranjit values outside specified reference range. Prepared and electronically signed by Jonathan Hendricks MD 12/20/2018 12:11
[2018-12-20] MEDS ORDERED: Carvedilol TAB* 3.125 MG PO SCH (13:00)
[2018-12-20] MEDS ORDERED: Apixaban* 5 MG TAB PO SCH (13:00)
[2018-12-20 13:50] VITALS: BP 149/60
--- NOTE | 2018-12-20 19:33 | PN ---
Cardiology Progress Note Date of Service: 12/20/18 Attn coders please do not bill for this encounter I had received a phone call and consult from RADHA Heath earlier today From a cardiac standpoint, patient was reported to have developed CHF during this hospitalization with development of atrial fibrillation this AM LVEF had worsened mildly from previous in the setting of atrial fibrillation I recommended to start eliquis and coreg and that I would see and evaluation patient later today with tentative plan for consideration of cardioversion within the next day or so if he does not spontaneously convert. Patient had been discharged prior to me seeing patient.
[2018-12-20 21:01] LABS: Renal Sodium Excretion 2.74 %; Urine Creatinine Concentration 46.58 mg/dL
[2018-12-20 21:27] LABS: Creatinine, Serum 2.48 mg/dL (0.51-0.95)
--- NOTE | 2018-12-20 21:41 | DS ---
CC: Dr. Erika Bolivar; Dr. Keith Benavidez; Dr. Roman Srinivasan * DISCHARGE SUMMARY: DATE OF ADMISSION: 12/18/18 DATE OF DISCHARGE: 12/20/18 PRIMARY CARE PROVIDER: Dr. Erika Bolivar. WOOD FLOORING SPECIALIST: Dr. Keith Benavidez. UROLOGIST: Dr. Roman Srinivasan. ATTENDING PHYSICIAN: Dr. Coral Garcia * (dictated by RADHA Person). PRIMARY DIAGNOSES: 1. Bilateral pyelonephritis with bacteremia. 2. Acute on chronic systolic heart failure. 3. New onset atrial fibrillation. SECONDARY DIAGNOSES: 1. Insulin-dependent diabetes. 2. Systolic heart failure. 3. Hypertension. 4. CAD, distant OH without intervention. 5. CKD. 6. GERD. 7. Chronic HBV. 8. Left bundle branch block. STUDIES WHILE IN THE HOSPITAL: Abdomen and pelvis CT 12/17/18, impression: There is symmetrical bilateral perinephric scarring or fat stranding, but no visible calculi or hydronephrosis. There is minimal urine volume in the urinary bladder with associated urinary bladder wall thickening, but there is also adjacent fat stranding, cannot exclude diffuse cystitis. Transthoracic echocardiogram, 12/20/18, impression: Left ventricle cavity size is normal, wall thickness mildly increased, systolic function moderately reduced , EF 30% to 35%, mild global left ventricle hypokinesis and abnormal septal motion consistent with LBBB, mild mitral regurgitation. Compared to prior study 08/21/18, LVEF was previously 35% to 40% and was in sinus rhythm. The patient currently in atrial fibrillation. DISCHARGE MEDICATIONS: Home medications: 1. Amlodipine 10 mg p.o. daily. 2. Aspirin 81 mg p.o. daily. 3. Azilsartan 80 mg p.o. at bedtime. 4. Esomeprazole 40 mg p.o. at bedtime. 5. Furosemide 40 mg p.o. b.i.d. 6. Humalog 5 units subcu a.c. and bedtime. 7. Lantus 20 units subcu at 2000. 8. Multivitamin for him 1 tab p.o. q.a.m. 9. Potassium 10 mEq p.o. b.i.d. 10. Simvastatin 20 mg p.o. at bedtime. 11. Vitamin B12 one tab p.o. q.a.m. New home medications: 1. Apixaban 5 mg p.o. b.i.d. 2. Carvedilol 3.125 mg p.o. b.i.d. 3. Cefdinir 300 mg p.o. b.i.d. HISTORY OF PRESENT ILLNESS/HOSPITAL COURSE: Mr. Doran is a 68-year-old male with a past medical history of diabetes, coronary artery disease status post distant OH, hypertension, GERD, CKD, baseline left bundle branch block, who presents with 2 to 3 days of back pain that he describes as dull and aching. He had associated nausea, vomiting, fever on the day of admission. No history of kidney stones. He does follow with Dr. Srinivasan regularly. In the emergency department, the patient was noted to be febrile with a temperature of 101. CT of the abdomen and pelvis shows bilateral perinephric stranding concerning for pyelonephritis. Urinalysis shows leukocyte esterase and white blood cells. CRP was elevated. The patient met 2/4 SIRS criteria and was admitted to the hospital with sepsis, pyelonephritis, and acute kidney injury. He was treated with 2 L of IV fluid. He was given vancomycin and Zosyn in the emergency department. He was transitioned to ceftriaxone during admission. Cultures were obtained. Urine culture showed no growth. Blood culture was negative for MRSA and Staph aureus, positive for Staphylococcus hominis which is likely a contaminant. Culture was also positive for E. coli in 1 blood culture. Sensitivities were not reported back by the time of the patient's discharge, although patient improved with ceftriaxone and was discharged on cefdinir. Throughout the patient's stay, he was noted to improve in symptoms from pyelonephritis. He developed lower extremity edema as well as shortness of breath during his stay. Chest x-ray was obtained and noted small right basilar infiltrate. ECHO revealed EF of 30-35%, previously 35-40%. EKG revealed atrial fibrillation, which the patient remained in for some time, but did spontaneously convert back to normal sinus rhythm before discharge. BNP was obtained and was elevated at 1201. The patient was treated with IV Lasix. It was recommended that the patient remain 1 more night to ensure that his respiratory status and shortness of breath improved. He is noted to be off oxygen at discharge. He is very eager to go home. He does have capacity. He refuses to stay one more night and requests discharge despite advice to remain in the hospital for further treatment. Concerning the patient's atrial fibrillation, Cardiology was consulted, but were unable to meet the patient prior to leaving. It was recommended that he be started on Eliquis 5 mg p.o. b.i.d., carvedilol 3.125 mg b.i.d. This was started prior to discharge, shortly after the patient was noted to convert to normal sinus rhythm. He was encouraged to closely follow up with his primary outpatient medical assistant float, Dr. Benavidez, which he has agreed to do. At the time of discharge, the patient denies chest pain, cough, or fever. He does have some shortness of breath, but is no longer requiring oxygen. He denies abdominal pain, suprapubic pain, flank pain, nausea, vomiting, diarrhea, or constipation. He denies changes in urination. He denies calf pain or tenderness. Mr. Doran is stable for discharge. Again, it is recommended that he remain in the hospital 1 more night but he has insisted on discharge. PHYSICAL EXAMINATION: Vital Signs: Temperature 98.3 oral, heart rate 93, respiratory rate 20, oxygen saturation 97% on room air, blood pressure 149/60. General: Mr. Doran is a well-dressed, well-nourished, overweight, 68-year- old male, who is sitting up in bed. He appears to be in no acute distress. He has no work of breathing, no respiratory distress. He is cooperative and appropriate. He is very patient, but eager to leave. HEENT: PERRL, EOMI. Hearing grossly intact. Oral mucous membranes are moist. There are no lesions. Cardiovascular: Regular rate and rhythm with S1, S2 present without murmurs, rubs, clicks, or gallops. Respiratory: Symmetrical chest expansion without use of accessory muscles. There are bibasilar rales. No rhonchi or wheezes. Abdomen: Bowel sounds noted in all quadrants. The abdomen is soft. There is no tenderness to palpation. No suprapubic tenderness. No CVA tenderness. There is no hepatosplenomegaly. Extremities: Skin is warm and smooth bilaterally without clubbing, cyanosis. Bilateral lower extremity 1+ pitting edema. Radial and pedal pulses are palpable. Neuro: The patient is awake. He is alert and oriented x3. Cranial nerves grossly intact. He is able to move all of his extremities. He has a steady gait without impairment. DISCHARGE PLAN: Mr. Doran will be discharged to home. CONDITION: Stable. ACTIVITY: As tolerated. DIET: Heart healthy, ADA/diabetic. MEDICATIONS: 1. Eliquis 1 tab p.o. b.i.d., starting tonight. 2. Carvedilol 1 tab p.o. b.i.d., starting tonight. 3. Cefdinir 1 tab p.o. b.i.d. x10 days, starting tomorrow morning. EDUCATION: 1. Follow up with primary care provider in 4 to 7 days. 2. Follow up with Dr. Benavidez, Cardiology as soon as possible, within 4 to 7 days. 3. Follow up with Dr. Srinivasan, Urology, as soon as possible, within 4 to 7 days. Again, the patient is leaving against the advice of this provider. He was asked to return to the ER or nearest hospital if he experiences any worsening of symptoms, return or worsening of abdominal or flank pain, painful urination, blood in the urine, worsening of shortness of breath, chest pain, high fever, chills, night sweats, palpitations, dizziness, lightheadedness, loss of consciousness, or any other worrisome signs or symptoms. This is a summarized report of a complex medical history and hospital stay. For further details, please see the entire medical record. TIME SPENT: Approximately 45 minutes were spent on this discharge, greater than half that time was spent [id number] with the patient discussing discharge plans and instructions. RADHA MARCUS [id number]/[facility] #: [id number] [place]
== END 2018-12-20 17:30 | disposition left against medical advice (07) | DRG 871 ==
LOC: ED 17:05 → MED 12-18 02:36
PROVIDERS: ADMIT Internal Medicine; ATTEND Internal Medicine
DX: A41.9 Sepsis, unspecified organism (principal); I50.23 Acute on chronic systolic (congestive) heart failure; N12 Tubulo-interstitial nephritis, not specified as acute or chronic; I13.0 Hypertensive heart and chronic kidney disease with heart failure and stage 1 through stage 4 chronic kidney disease, or unspecified chronic kidney disease; E87.1 Hypo-osmolality and hyponatremia; B18.1 Chronic viral hepatitis B without delta-agent; N17.9 Acute kidney failure, unspecified; I48.91 Unspecified atrial fibrillation; I34.0 Nonrheumatic mitral (valve) insufficiency; E11.22 Type 2 diabetes mellitus with diabetic chronic kidney disease; I25.10 Atherosclerotic heart disease of native coronary artery without angina pectoris; K21.9 Gastro-esophageal reflux disease without esophagitis; D69.6 Thrombocytopenia, unspecified; N18.3 Chronic kidney disease, stage 3 (moderate); D63.1 Anemia in chronic kidney disease; I44.7 Left bundle-branch block, unspecified; Z53.21 Procedure and treatment not carried out due to patient leaving prior to being seen by health care provider; Z90.49 Acquired absence of other specified parts of digestive tract; Z79.82 Long term (current) use of aspirin; Z79.4 Long term (current) use of insulin; I25.2 Old myocardial infarction; Z79.01 Long term (current) use of anticoagulants; Z88.8 Allergy status to other drugs, medicaments and biological substances; Z83.3 Family history of diabetes mellitus; Z82.49 Family history of ischemic heart disease and other diseases of the circulatory system; Z72.89 Other problems related to lifestyle; Z97.4 Presence of external hearing-aid; Z87.891 Personal history of nicotine dependence
CPT/HCPCS: 36415; 71045; 74176; 80048; 80053; 81003; 81015; 82570; 83605; 83880; 84300; 85025; 85060; 85610; 85730; 86140; 87040; 87077; 87086; 87150; 87186; 87205; 93005; 93306; 99283; A9270-GY; J0696; J1650; J1940; J2270; J2543; J3370